=== PATIENT | male | born 1990 | race Caucasian/White ===

== ENCOUNTER → 2020-10-10 08:45 | Outpatient (BNVA) | payer MEDICAID, SELFPAY | PROVIDERS: Visit Provider Orthopaedic Surgery | DX: R07.2 Precordial pain (principal); R20.0 Anesthesia of skin | CPT/HCPCS: 93005; 99202; 99212 ==

== ENCOUNTER 2021-03-22 12:03 | Emergency (ER) | payer MEDICAID, SELFPAY ==
--- NOTE | ~2021-03-22 | XR_ITS ---
EXAMINATION: XR CHEST CLINICAL INFORMATION: Cough. COMPARISON: None TECHNIQUE: Frontal view of the chest was obtained. FINDINGS: No significant abnormality is noted involving the heart, lungs, mediastinum, bony thorax or soft tissues. XR/XR chest 1V IMPRESSION: Unremarkable chest examination.
[2021-03-22 12:25] VITALS: BP 131/77; PULSE 66; RESP 18; TEMP 36.8; O2SAT 98; BMI 34.0
--- NOTE | 2021-03-22 15:15 | ED_ITS ---
HPI - URI/Sore Throat General Chief Complaint: Upper Respiratory Symptoms Stated Complaint: cough Time Seen by Provider: 03/22/21 14:07 Source: patient Mode of arrival: ambulatory Limitations: no limitations History of Present Illness HPI Narrative: Patient presents to ED for cough. Patient wants to get tested for COVID-19 virus due to him in his son being exposed to 3 people in the house as positive for COVID-19 virus. Patient states no shortness of breath or chest pain. Related Data Home Medications Medication Instructions Recorded Confirmed acetaminophen 325 mg capsule 325 mg PO QID PRN 10/10/20 10/10/20 aluminum-mag hydroxide-simethicone 5 ml PO QID PRN 10/10/20 10/10/20 400 mg-400 mg-40 mg/5 mL oral susp pantoprazole 40 mg tablet,delayed 40 mg PO DAILY 10/10/20 10/10/20 release polyethylene glycol 3350 17 17 g PO DAILY 10/10/20 10/10/20 gram/dose oral powder Previous Rx's Medication Instructions Recorded arm brace #1 ea 10/19/20 benzonatate [Tessalon Perles] 100 mg PO TID PRN #15 cap 03/22/21 Allergies Allergy/AdvReac Type Severity Reaction Status Date / Time No Known Allergies Allergy Verified 10/10/20 09:36 [No Known Allergies*] Review of Systems Review of Systems: Yes all other systems are reviewed and are negative Constitutional: Constitutional: Reports as per HPI and Reports no additional constitutional complaints Eyes: Eyes: Reports as per HPI and Reports no additional eye complaints ENT: Reports system reviewed and no additional complaints, except as docum ented and Reports as per HPI Cardiovascular: Cardiovascular: Reports as per HPI, Reports no additional cardiovascular complaints and Denies dyspnea Respiratory: Respiratory: Reports as per HPI, Reports no additional respiratory complaints, Reports cough and Denies dyspnea Gastrointestinal: Gastrointestinal: Reports as per HPI, Reports no additional gastrointestinal complaints, Reports diarrhea and Reports nausea Genitourinary: Genitourinary: Reports no additional male genitourinary complaints and Reports as per HPI Musculoskeletal: Musculoskeletal: Reports no additional musculoskeletal complaints and Reports as per HPI Neurologic: Reports system reviewed and no additional complaints, except as documented and Reports as per HPI Psychiatric: Psychiatric: Reports no additional psychiatric complaints and Reports as per HPI [facility] Past Medical History Medical History Knee derangement Left carpal tunnel syndrome Numbness of right hand Surgical History History of carpal tunnel release Family History Family History Father No problems noted. Mother No problems noted. 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 - [employer] Physical Exam Vital Signs: Vital Signs: Last Vital Signs Temp 98.3 F 03/22/21 12:25 Pulse 54 03/22/21 15:39 Resp 18 03/22/21 15:39 BP 115/66 03/22/21 15:39 Pulse Ox 97 03/22/21 15:39 Body Mass Index 34.0 Const: General: cooperative, healthy appearing, comfortable, no acute distress, well developed, alert, awake and Physically active Jason entation/consciousness: patient oriented x3 HENMT: Head: Yes normal to inspection, Yes No palpable skull fracture present, Yes normocephalic, Yes atraumatic and No abrasion Eyes: General: appearance normal, both eyes and all related structures Neck: Neck: Yes normal visual inspection, Yes full ROM and Yes no lymphadenopathy Chest: Chest palpation & inspection: normal inspection of the chest and normal palpation of entire chest wall Resp: Effort & Inspection: normal respiratory effort and able to speak in complete sentences Cardio: Jugular venous distension: no JVD Heart sounds: S1 normal heart sound present and S2 normal heart sound present GI: Inspection: Yes normal to inspection and No abdominal wall ecchymosis Palpation (GI): Soft to palpation, not firm, nontender, no guarding and not rigid : General: No CVA tenderness and Yes no CVA tenderness Back/Spine/Pelvis: Back: no CVA tenderness, No CVA tenderness and No back tenderness Skin: General skin exam: no rashes or lesions noted and elasticity normal Neuro: General: patient oriented x3 and CN's II-XI intact bilaterally Cranial nerves: Yes CN's II-XII intact bilaterally Extrem: General: Yes normal to inspection and Yes full ROM Psych: Appearance: grossly normal, well kempt and not disheveled Course Course Course Narrative: Patient had chest x-ray ordered. Reevaluation(s) Reevaluation #1: X-ray came back negative. Patient is swabbed for COVID-19. Patient rather be called with results at home and await for results. Reevaluation #2: Patient's COVID swab came back negative. Patient was called in his cell phone number and inform of this result. Patient informed his symptoms worsen he should quarantine or get retested. MDM - URI/Sore Throat Lab Data Labs: Lab Results 03/22/21 Range/Units 14:49 Coronavirus (PCR) NEGATIVE (Negative) Influenza Type A (PCR) NEGATIVE (Negative) Influenza Type B (PCR) NEGATIVE (Negative) RSV RNA Qual (PCR) NEGATIVE (Negative) Discharge Plan Discharge Clinical Impression: Upper respiratory infection, Acute viral syndrome Patient Disposition: Home, Self-Care Instructions: Upper Respiratory Infection (ED), Viral Syndrome (ED) Additional Instructions: Return to the ED immediately for any chest pain, shortness of breath, swelling of lower extremity, calf pain, coughing up blood, weakness, intractable fever, chills, any other concerning symptoms. If COVID swab comes back positive recommend 14 days self-isolation. Prescriptions: New benzonatate [Tessalon Perles] 100 mg capsule 100 mg PO TID PRN (Reason: cough) Qty: 15 RF: 0 No Action acetaminophen [Tylenol] 325 mg capsule 325 mg PO QID PRNRF: 0 (DME) Wrist Brace Misc See Rx Instructions .ROUTE .MEDSUPPLY Qty: 1 RF: 0 pantoprazole 40 mg tablet,delayed release (DR/EC) 40 mg PO DAILY RF: 0 polyethylene glycol 3350 [Miralax] 17 gram/dose powder 17 g PO DAILY RF: 0 alum-mag hydroxide-simeth [Mylanta Maximum Strength] 400-400-40 mg/5 mL suspension 5 ml PO QID PRNRF: 0 Referrals: [facility] [Primary Care Provider] - 2 days (URI. Viral syndrome. COVID swab results pending) Interventions: ED Discharge Assessment Last Done: 03/22/21 15:43 Discharge Date/Time: 03/22/21 15:46 Print Language: Italian
[2021-03-22 15:39] VITALS: BP 115/66; PULSE 54; RESP 18; O2SAT 97
[2021-03-22 16:06] LABS: Influenza A PCR NEGATIVE (Negative); Influenza B PCR NEGATIVE (Negative); Resp Syncy Virus RNA Qual PCR NEGATIVE (Negative); SARS COV2 PCR INHOUSE NEGATIVE (Negative)
== END 2021-03-22 15:46 | disposition home or self-care (01) ==
PROVIDERS: Physician Assistant; Emergency Provider Emergency Medicine
DX: B34.9 Viral infection, unspecified (principal); J06.9 Acute upper respiratory infection, unspecified; R05 Cough; Z20.822 Contact with and (suspected) exposure to COVID-19; Z79.899 Other long term (current) drug therapy; F17.200 Nicotine dependence, unspecified, uncomplicated; Z71.6 Tobacco abuse counseling
CPT/HCPCS: 0241U; 36415; 71045; 99284

== ENCOUNTER → 2021-05-03 13:36 | Outpatient (BNVA) | payer MEDICAID, SELFPAY | PROVIDERS: Visit Provider Physician Assistant | DX: G56.01 Carpal tunnel syndrome, right upper limb (principal) | CPT/HCPCS: 99212 ==

== ENCOUNTER 2021-09-26 09:48 | Outpatient (REF) | payer MEDICAID, SELFPAY ==
--- NOTE | ~2021-09-26 | XR_ITS ---
EXAMINATION: XR HAND, RIGHT CLINICAL INFORMATION: Pain. COMPARISON: None TECHNIQUE: PA, lateral, and oblique views of the right hand. FINDINGS: The bones and soft tissues are normal. No acute fracture or dislocation is seen. There is an old, healed fracture of the fifth metatarsal carpal bone, with residual mild apex medial angulation. Alignment is anatomic. There is a neutral ulnar variance. Joint spaces are maintained. A tiny bone island is incidentally noted at the lateral aspect of the base of the third middle phalanx. No erosions or soft tissue calcifications. XR/XR hand RT min 3V IMPRESSION: Unremarkable right hand. There are no unusual degenerative changes. No focal bone erosions are seen.
== END 2021-09-26 09:49 | disposition home or self-care (01) ==
LOC: HO.HOSX 09:48
PROVIDERS: Visit Provider Orthopaedic Surgery
DX: M79.641 Pain in right hand (principal); R20.0 Anesthesia of skin; M79.89 Other specified soft tissue disorders
CPT/HCPCS: 73130; 99202

== ENCOUNTER 2021-10-15 11:32 | Emergency (ER) | payer MEDICAID, SELFPAY ==
[2021-10-15 11:39] VITALS: BP 137/64; PULSE 74; RESP 18; TEMP 37; O2SAT 98; BMI 31.6
--- NOTE | 2021-10-15 13:16 | ED_ITS ---
HPI - Skin/Abscess/Foreign Bdy General Chief complaint: Skin/Abscess/Foreign Body Stated complaint: l foot infection Time Seen by Provider: 10/15/21 13:02 Source: patient Mode of arrival: ambulatory History of Present Illness HPI narrative: 30-year-old male presenting to the ED complaining of multiple plantars warts to left foot x2 weeks. Admits has been using OTC remedies without relief. Reports increasing pain & difficulty standing for long periods of time secondary to discomfort. Denies fever, chills, drainage from area, erythema MD complaint: abscess/boil Related Data Home Medications Medication Instructions Recorded Confirmed acetaminophen 325 mg capsule 325 mg PO QID PRN 10/10/20 10/10/20 (Tylenol) aluminum-mag hydroxide-simethicone 5 ml PO QID PRN 10/10/20 10/10/20 400 mg-400 mg-40 mg/5 mL oral susp (Mylanta Maximum Strength) pantoprazole 40 mg tablet,delayed 40 mg PO DAILY 10/10/20 10/10/20 release polyethylene glycol 3350 17 17 g PO DAILY 10/10/20 10/10/20 gram/dose oral powder (Miralax) Previous Rx's Medication Instructions Recorded arm brace (Wrist Brace) #1 ea 10/19/20 benzonatate 100 mg capsule 100 mg PO TID PRN #15 cap 03/22/21 (Tessalon Perles) acetaminophen 500 mg tablet 500 mg PO Q6H PRN #20 tab 10/15/21 (Tylenol Extra Strength) naproxen 500 mg tablet 500 mg PO BID PRN 10 Days #20 tab 10/15/21 Allergies Allergy/AdvReac Type Severity Reaction Status Date / Time No Known Allergies Allergy Verified 09/26/21 16:02 [No Known Allergies*] Review of Systems Review of Systems: Constitutional: No Fever, No Chills ENT/Mouth: No Nasal Congestion, No Hoarseness, No sore throat, No Rhinorrhea, No Swallowing Difficulty Cardiovascular: No Chest Pain, No SOB Respiratory: No Cough, No Wheezing Gastrointestinal: No Nausea, No Vomiting, No Diarrhea, No Constipation, No Abdominal pain Musculoskeletal: No joint pain, No Myalgias, No Joint Swelling Skin: + Skin Lesions, No rash Neuro: No Weakness, No Numbness, No Paresthesias Yes all other systems are reviewed and are negative PMFSH Past Medical History Attestation statement: The following information was validated with the patient. Medical History Knee derangement Left carpal tunnel syndrome Numbness of right hand Surgical History History of carpal tunnel release Family History Family History Father No problems noted. Mother No problems noted. 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 - [employer] Physical Exam Vital Signs: Vital Signs: Last Vital Signs Temp 98.6 F 10/15/21 11:39 Pulse 74 10/15/21 11:39 Resp 18 10/15/21 11:39 BP 137/64 10/15/21 11:39 Pulse Ox 98 10/15/21 11:39 Body Mass Index 31.6 Const: General: cooperative, healthy appearing and no acute distress Orientation/consciousness: patient oriented x3 Limitations: no limitations HENMT: Head: Yes normal to inspection and Yes atraumatic Ears: hearing grossly normal bilaterally General nose exam: Normal external nose present Face and sinus: Yes normal facial exam Eyes: General: appearance normal, both eyes and all related structures EOM: EOMs intact bilaterally Neck: Neck: Yes normal visual inspection and Yes no meningeal signs Resp: Effort & Inspection: normal respiratory effort and no respiratory distress Auscultation: clear to auscultation bilaterally Cardio: Rate: regular rate Heart sounds: S1 normal heart sound present and S2 normal heart sound present Peripheral pulses: dorsalis pedis present Skin: Other: 4 plantars warts noted to left foot, no erythema/cellulitis, no fluctuance/induration, no streaking. Tender to palpation Rashes: no rashes Neuro: General: patient oriented x3 and no meningeal signs Gait exam (Neuro): Normal gait present Extrem: General: Yes normal to inspection MDM - Skin/Abscess/Foreign Bdy MDM Narrative Medical decision making narrative: 30-year-old male presenting to the ED complaining of multiple plantars warts to left foot x2 weeks. On exam vital sig ns stable, physical exam as above with for planter's warts noted to left foot, currently with topical remedy applied. Since the patient needs follow-up with Dermatology likely for cryotherapy, he verbalized understanding feel safe for discharge home at this time Medical Records Attestation: I reviewed the patient's medical records. Lab Data Attestation: I reviewed the patient's lab results. Discharge Plan Discharge Clinical Impression: Plantar wart of left foot Patient Disposition: Home, Self-Care Instructions: Plantar Wart (ED), Cryotherapy Wart Removal (DC) Additional Instructions: Continue using OTC medications as you have been Keep feet dry and clean Call regional maintenance manager for follow-up FANNY Naproxen as an anti-inflammatory pain medication, take with food In addition take Tylenol If area begins look infected, is red, there is drainage please return to the ED Prescriptions: New acetaminophen [Tylenol Extra Strength] 500 mg tablet 500 mg PO Q6H PRN (Reason: pain or fever) Qty: 20 RF: 0 naproxen 500 mg tablet 500 mg PO BID PRN (Reason: pain) 10 Days Qty: 20 RF: 0 No Action benzonatate [Tessalon Perles] 100 mg capsule 100 mg PO TID PRN (Reason: cough) Qty: 15 RF: 0 acetaminophen [Tylenol] 325 mg capsule 325 mg PO QID PRNRF: 0 (DME) Wrist Brace Misc See Rx Instructions .ROUTE .MEDSUPPLY Qty: 1 RF: 0 pantoprazole 40 mg tablet,delayed release (DR/EC) 40 mg PO DAILY RF: 0 polyethylene glycol 3350 [Miralax] 17 gram/dose powder 17 g PO DAILY RF: 0 alum-mag hydroxide-simeth [Mylanta Maximum Strength] 400-400-40 mg/5 mL suspension 5 ml PO QID PRNRF: 0 Referrals: Galilea Martni PA [Physician Instrument Sterilizer] - 2 days Alirio Day MD [Physician] - 2 days Babatunde Dior MD [Physician] - 2 days Sarah Chiang NP [Nurse Practitioner] - 2 days Eli Kilgore PA-C [Physician Instrument Sterilizer] - 2 days Kiley Wynn PA-C [Physician Instrument Sterilizer] - 2 days Stand Alone Forms: Work/School Release
== END 2021-10-15 13:31 | disposition home or self-care (01) ==
PROVIDERS: Emergency Provider Emergency Medicine; PCP Nurse Practitioner
DX: B07.0 Plantar wart (principal)
CPT/HCPCS: 99283

== ENCOUNTER 2021-11-15 09:48 | Outpatient (REF) | payer MEDICAID, SELFPAY ==
--- NOTE | 2021-11-15 09:50 | EMG_ITS ---
This is a 30-year-old man, who is status post left carpal tunnel release, now comes in with symptoms in the right upper extremity in the last 6 months of intermittent numbness and tingling. Neurological examination is normal with no Tinel or Phalen sign. IMPRESSION: Carpal tunnel syndrome. Nerve conduction EMG study: Mild carpal tunnel syndrome on the right. Normal EMG of the right C5-T1 innervated muscles. MD HAMMAD Booker/ERICKA / [id number]
== END 2021-11-15 09:49 | disposition home or self-care (01) ==
LOC: HO.NEURO 09:48
PROVIDERS: PCP Nurse Practitioner; Visit Provider Physician Assistant
DX: M79.641 Pain in right hand (principal); R20.2 Paresthesia of skin; R20.0 Anesthesia of skin
CPT/HCPCS: 95885; 95910

== ENCOUNTER → 2021-12-06 12:51 | Outpatient (BNVA) | payer MEDICAID, SELFPAY | PROVIDERS: Visit Provider Orthopaedic Surgery ==

== ENCOUNTER 2022-01-08 11:18 | Day surgery (SDC) | payer MEDICAID, SELFPAY ==
[2022-01-08 12:18] VITALS: BP 123/72; PULSE 66; RESP 16; TEMP 36.2; O2SAT 99; BMI 34.0
--- NOTE | 2022-01-08 13:17 | MHC.SHP ---
Pre-Procedural Eval Section A Date of Service: 01/08/22 The patient is an INPATIENT: No Changes since office visit: No Cold of Flu in the past 2 weeks, No New Medical Problems, No Changes in Medication and No Patient answered all questions The History & Physical has been completed within 30 days and I have reviewed it.: Yes Section B Chief Complaint: Carpal Tunnel Syndrome Allergies: Allergies Allergy/AdvReac Type Severity Reaction Status Date / Time No Known Allergies Allergy Verified 01/08/22 12:17 [No Known Allergies*] Plan I have reviewed the history and physical and performed a pertinent physical examination on my patient. No changes have occurred unless specified.
--- NOTE | 2022-01-08 13:18 | W.PM.OPN ---
Operative Note Operative Note Date of Service: 01/08/22 Narrative: Preop diagnosis: 1. right Carpal tunnel syndrome Postop diagnosis: same Procedure: 1. right Carpal tunnel release Surgeon: Sharee Singh MD Anesthesia: local block using 1% lidocaine with epinephrine Findings: Thickened transverse carpal ligament. EBL: Less than 5 mL Specimens: None Complications: None Disposition: Brought to recovery room in stable condition Plan: Follow-up for 10-14 days for wound check and suture removal Indications: The patient is 31 years old, with right carpal tunnel syndrome that has been unresponsive to nonoperative management. The risks and benefits of operative treatment including but not limited to risk of damage to blood vessels, nerves, tendons, infection, persistent pain, persistent symptoms, or possible need for additional surgery were discussed with the patient and the patient wishes to proceed with surgery. Procedure: Once consent was obtained a local block was performed using a combination of 1% lidocaine with epinephrine. The patient was then brought back to the operating suite and placed on the operative table in supine position. A tourniquet was applied to the proximal aspect of the right upper extremity and the limb was prepped and draped in a standard surgical fashion. Once assured that we had a good block, a 1.5 cm longitudinal incision was made centered over the carpal tunnel. The incision was made through the skin to the subcutaneous tissues using a #15 blade. Dissection was made down to the level of the transverse carpal ligament with care being taken to protect the palmar cutaneous nerve. Once the transverse carpal ligament was clearly visualized, a longitudinal incision was made in the transverse carpal ligament 1st using a #15 blade, then using tenotomy scissors under direct visualization. Care was taken to look for and protect the motor branch of the median nerve when seen in this area. Once satisfied with our carpal tunnel release the wound was copiously irrigated with normal saline and hemostasis was obtained with a brief period of local pressure. The skin edges were reapproximated with some 5.0 nylon suture material and a sterile dressing was applied. The patient appears to have tolerated the procedure well and with no complications. All digits were well vascularized at the conclusion of the case.
[2022-01-08 13:58] VITALS: BP 110/57; PULSE 58; RESP 16; TEMP 37; O2SAT 98
== END 2022-01-08 14:02 | disposition home or self-care (01) ==
PROVIDERS: PCP Nurse Practitioner; Visit Provider Orthopaedic Surgery
PROC: (CPT 64721; principal; 2022-01-08 13:30)
DX: G56.01 Carpal tunnel syndrome, right upper limb (principal); M79.641 Pain in right hand
CPT/HCPCS: 64721

== ENCOUNTER → 2022-01-23 10:48 | Outpatient (BNVA) | payer MEDICAID, SELFPAY | PROVIDERS: PCP Nurse Practitioner; Visit Provider Orthopaedic Surgery | DX: Z47.89 Encounter for other orthopedic aftercare (principal); Z87.39 Personal history of other diseases of the musculoskeletal system and connective tissue | CPT/HCPCS: 99212 ==

== ENCOUNTER 2022-08-23 14:42 | Outpatient (REF) | payer MEDICAID, SELFPAY ==
--- NOTE | ~2022-08-23 | XR_ITS ---
EXAMINATION: XR FOOT, RIGHT CLINICAL INFORMATION: Right foot pain. COMPARISON: None TECHNIQUE: AP, lateral, and oblique views of the right foot. FINDINGS: No acute fracture or dislocation. No joint space narrowing or marginal osteophytes. No osseous erosion. Tiny plantar calcaneal spur. XR/XR foot RT min 3V IMPRESSION: No acute osseous abnormality. Tiny plantar calcaneal spur.
== END 2022-08-23 14:43 | disposition home or self-care (01) ==
LOC: HO.XRAY 14:42
PROVIDERS: PCP Registered Nurse; Visit Provider Emergency Medicine
DX: M79.671 Pain in right foot (principal)
CPT/HCPCS: 73630